=== PATIENT | male | born 1950 | race Caucasian/White ===

== ENCOUNTER 2017-11-27 16:15 | Emergency (ER) | payer MEDICARE ==
[~2017-11-27] VITALS: Ht 180.3 cm; Wt 92.5 kg
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
--- NOTE | 2017-11-27 16:47 | NUR ---
PATIENT TAKEN TO XRAY VIA STRETCHER.
--- NOTE | 2017-11-27 16:54 | NUR ---
PATIENT RETURNED FROM RADIOLOGY IN STABLE CONDITION.
--- NOTE | 2017-11-27 18:13 | NUR ---
TRAFFIC OFFICERS AT BEDSIDE FOR REPORT
[2017-11-27 18:40] VITALS: BP 134/76
--- NOTE | 2017-11-27 18:40 | NUR ---
Patient discharged to home in stable condition. Written and verbal after care instructions given. Patient verbalizes understanding of instruction.
== END 2017-11-27 18:40 | disposition home or self-care (01) ==
LOC: ER 16:25
DX: S20.211A Contusion of right front wall of thorax, initial encounter (principal); S50.01XA Contusion of right elbow, initial encounter; E78.00 Pure hypercholesterolemia, unspecified; E11.40 Type 2 diabetes mellitus with diabetic neuropathy, unspecified; I10 Essential (primary) hypertension; V43.62XA Car passenger injured in collision with other type car in traffic accident, initial encounter; Y93.89 Activity, other specified; Y92.410 Unspecified street and highway as the place of occurrence of the external cause; Y99.8 Other external cause status
CPT/HCPCS: 71111; 99284; A4606; Z7610